=== PATIENT | female | born 1995 | race American Indian/Alaskan Native ===

== ENCOUNTER 2019-03-17 18:31 | Emergency (ER) | payer SELFPAY ==
[2019-03-17 18:54] VITALS: BP 115/78
[2019-03-17] MEDS ORDERED: IBUPROFEN PO ONE (21:37)
[2019-03-17] MEDS ORDERED: TESSALON PERLES PO ONE (21:37)
--- NOTE | 2019-03-17 21:38 | Emergency Department Report ---
Blank Doc - Documentation Documentation: As I enter the room to examine the patient patient was not there. Phone number listed for the patient in was no answer. I did not see or examine the patient.
== END 2019-03-17 21:38 | disposition left against medical advice (07) ==
LOC: ED 18:31
DX: R05 Cough (principal); Z53.21 Procedure and treatment not carried out due to patient leaving prior to being seen by health care provider

== ENCOUNTER 2020-07-17 12:40 | Outpatient (CLI) | payer OTHER | END 2020-07-17 16:14 | disposition home or self-care (01) | LOC: LAB 12:40 → APU 15:22 → LAB 16:14 | PROVIDERS: ATTEND Obstetrics & Gynecology | DX: O26.893 Other specified pregnancy related conditions, third trimester (principal); O99.333 Smoking (tobacco) complicating pregnancy, third trimester; F17.200 Nicotine dependence, unspecified, uncomplicated; Z3A.32 32 weeks gestation of pregnancy; Z67.41 Type O blood, Rh negative | CPT/HCPCS: 86850; 86900; 86901; 96372; J2790 ==

== ENCOUNTER 2022-02-26 08:22 | Emergency (ER) | payer OTHER ==
[2022-02-26 08:48] VITALS: BP 112/69
--- NOTE | 2022-02-26 08:56 | Emergency Department Report ---
ED General Adult HPI - General Chief complaint: Chest Pain Stated complaint: BREAST/BACK PAIN PUI?: No Time Seen by Provider: 02/26/22 08:53 Source: patient Mode of arrival: Ambulatory Limitations: No Limitations - History of Present Illness Initial comments: 26 YO WITH SHARP RIGHT SIDE CHEST/BREAST PAIN FOR MONTHS. MADE BETTER BY REST AND WORSE WITH MOVEMENT. NO TRAUMA. NO FEVER. NO CHILLS. NO SOB. NO LEFT SIDED PAIN. CIG SMOKER -: Gradual, week(s) Severity scale (0 -10): 10 Consistency: intermittent Improves with: immobilization Worsens with: movement Associated Symptoms: denies other symptoms, chest pain. denies: confusion, cough, diaphoresis, fever/chills, headaches, loss of appetite, malaise, nausea/vomiting, rash, seizure, shortness of breath, syncope, weakness Treatments Prior to Arrival: none - Related Data Home Medications Medication Instructions Recorded Confirmed Last Taken No Known Home Medications [No 08/31/20 08/31/20 Unknown Reported Home Medications] Allergies Allergy/AdvReac Type Severity Reaction Status Date / Time NSAIDS (Non-Steroidal AdvReac Unknown Verified 02/26/22 08:54 Anti-Inflamma ED Review of Systems ROS: Stated complaint: BREAST/BACK PAIN Other details as noted in HPI Comment: All other systems reviewed and negative ED Past Medical Hx - Past Medical History Previous Medical History?: Yes Hx Hypertension: No Hx Diabetes: No Hx Deep Vein Thrombosis: No Hx Renal Disease: No Hx Sickle Cell Disease: No Hx Seizures: No Hx Asthma: No Hx HIV: No Additional medical history: CHRONS - Surgical History Past Surgical History?: Yes Additional Surgical History: polyp removal - Family History Family history: no significant - Social History Smoking Status: Current Every Day Smoker Substance Use Type: None - Medications Home Medications: Home Medications Medication Instructions Recorded Confirmed Last Taken Type No Known Home Medications [No 08/31/20 08/31/20 Unknown History Reported Home Medications] ED Physical Exam - General Limitations: No Limitations General appearance: alert, in no apparent distress - Head Head exam: Present: atraumatic, normocephalic - Eye Eye exam: Present: normal appearance - ENT ENT exam: Present: mucous membranes moist - Neck Neck exam: Present: normal inspection - Respiratory Respiratory exam: Present: normal lung sounds bilaterally. Absent: respiratory distress - Cardiovascular Cardiovascular Exam: Present: regular rate, normal rhythm, other (HR 80). Absent: systolic murmur, diastolic murmur, rubs, gallop - GI/Abdominal GI/Abdominal exam: Present: soft, normal bowel sounds - Extremities Exam Extremities exam: Present: normal inspection - Back Exam Back exam: Present: normal inspection - Neurological Exam Neurological exam: Present: alert, oriented X3 - Psychiatric Psychiatric exam: Present: normal affect, normal mood - Skin Skin exam: Present: warm, dry, intact, normal color. Absent: rash ED Course Vital Signs 02/26/22 08:44 Temperature 98.9 F Pulse Rate 105 H Respiratory 14 Rate Blood Pressure 112/69 O2 Sat by Pulse 98 Oximetry ED Medical Decision Making - EKG Data EKG shows normal: sinus rhythm Rate: normal (HR 88) - EKG Data When compared to previous EKG there are: no significant change Interpretation: no acute changes - Medical Decision Making LEFT ER AFTER INITIAL EVAL Vital Signs 02/26/22 08:44 Temperature 98.9 F Pulse Rate 105 H Respiratory 14 Rate Blood Pressure 112/69 O2 Sat by Pulse 98 Oximetry Critical care attestation.: If time is entered above; I have spent that time in minutes in the direct care of this critically ill patient, excluding procedure time. ED Disposition Clinical Impression: Atypical chest pain Disposition: 07 LEFT WITHOUT BEING SEEN Is pt being admited?: No Does the pt Need Aspirin: No Condition: Stable Instructions: Nonspecific Chest Pain, Adult
--- NOTE | 2022-02-28 18:12 | Electrocardiograph Report ---
[facility] Test Date: 2022-02-26 Test Time: 08:50:19 Pat Name: KYLAH SHIN Department: Room: Gender: F [employer]: ERICH : 1995 Requested By: NANNETTE BRUNO Order Number: [id number] Reading MD: Kaiden Avalos Measurements Intervals [place] Rate: 88 P: 71 RI: 160 QRS: 93 QRSD: 70 T: 63 QT: 358 QTc: 434 Interpretive Statements Sinus rhythm Rightward axis deviation No previous ECG available for comparison Electronically Signed On 02-28-2022 18:11:46 EDT by Kaiden Avalos
== END 2022-02-26 11:00 | disposition left against medical advice (07) ==
LOC: ED 08:22
DX: R07.89 Other chest pain (principal); F17.200 Nicotine dependence, unspecified, uncomplicated; Z88.6 Allergy status to analgesic agent
CPT/HCPCS: 93005; 99281